=== PATIENT | female | born 2005 | race Caucasian/White ===

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

== ENCOUNTER 2025-04-15 00:55 | Inpatient (IN) ==
[2025-04-15] MEDS ORDERED: LIDOCAINE 1% LOCAL 20 ML VIAL INFIL PRN (01:20)
[2025-04-15] MEDS ORDERED: CALCIUM CARBONATE 500 MG CHEWABLE TAB PO PRN (01:20)
[2025-04-15] MEDS ORDERED: OXYTOCIN 30 UNITS/NSS 30 UNITS/500 ML BAG IV PRN ×2 (01:20→14:19)
--- NOTE | 2025-04-15 01:25 | History & Physical Report ---
Date of Service April 15, 2025 Assessment & Plan (1) SROM (spontaneous rupture of membranes): Present on Admission?: Yes (2) Normal labor: Present on Admission?: Yes Plan Patient is a 19yo who presents at 40w0d with SROM/labor. Cvx 3-4cm, grossly ruptured - meconium stained fluid noted; will augment with pitocin if needed Epidural PRN GBS neg, Rh pos, RI Anticipate History of Present Illness Chief Complaint: Leaking of fluid, contractions Primary Care Provider: Elizabeth Parker PA-C Patient is a 19yo who presents at 40w0d with leaking of fluid and contractions. Notes contractions rated at 7, happening every few minutes. Noticed rupture of membranes around midnight - notes light yellow color. complicated by daily vaping. Allergies Allergy/AdvReac Type Severity Reaction Status Date / Time amoxicillin Allergy Severe HIVES Verified 04/15/25 01:23 diphenhydramine Allergy Severe BAD HIVES Verified 04/15/25 01:23 Penicillins Allergy Severe HIVES Verified 04/15/25 01:23 Home Medications Medication Instructions Recorded Confirmed Type PNV no.[id number] PO 09/21/24 04/09/25 History [ Gummies] Patient History Medical History (Updated 04/15/25 @ 01:24 by Mary Ellen Tipton MD) Varicella vaccination Mood disorder Anxiety Family History Grandmother (Maternal) Breast cancer Denies family history of Ovarian cancer Colorectal cancer Social History Smoking Status: Current every day smoker Tobacco Type: E-cigarettes / Vaping Do You Dip or Chew Tobacco: No; Hx Alcohol Use: No Hx Substance Use: No Preferred Language: Amharic marital status: Single marital status details: alberto Perkins (21) not involved Current Living Situation: Parent Current Living Situation Comment: lives with parent, dog, cat-parents changing litter current occupational status: unemployed Feels Safe at Home: Yes Review of Systems All systems reviewed & are unremarkable except as noted in HPI & below Physical Exam Constitutional: WD/WN, vitals as above Respiratory: normal respiratory effort Psychiatric: Orientation: alert and oriented x 3 Genitourinary: Manual OB Exam: + cervical dilation (3-4 per RN check), + cervical effacement 70% (75%) and + station -2 OB Exam Monitor Tracing: + external FHT monitor used, + external uterine monitor used (contractions q 2-3 min) and + category I (130s/mod dimitri/+accels/no decels) grossly ruptured with meconium stained fluid Results & Data Vital Signs (Past 12 Hours) Vital Signs Pulse BP 04/15/25 01:17 118 H 132/89 04/15/25 01:10 123 H 141/94 H Coding Level of Care Code None Diagnoses SROM (spontaneous rupture of membranes) Normal labor O80; Z37.9
[2025-04-15] MEDS: LACTATED RINGER'S 1,000 ML IV PRN (01:26)
[2025-04-15] MEDS ORDERED: INFLUENZA VACC TS2025-26(6m+)/PF (IIV3) 0.5mL Syr IM ONE (01:39)
[2025-04-15 01:40] LABS: Hematocrit (blood only) 31.6 % (37.0-47.0); Hemoglobin 10.1 g/dL (12.0-16.0); Mean Corpuscular Hemoglobin 24.6 pg (25.0-34.0); Mean Corpuscular Volume 76.9 fL (80.0-100.0); Platelet Count 192 K/uL (130-400); RDW Standard Deviation 38.0 fL (36.4-46.3); Red Blood Count 4.11 M/uL (4.20-5.40); White Blood Count 11.18 K/ul (4.8-10.8)
[2025-04-15] MEDS ORDERED: BUPIVACAINE 0.25% PF 30 ML VIAL EPI STA (02:13)
[2025-04-15] MEDS ORDERED: SODIUM CHLORIDE 0.9% PF INJ 10 ML VIAL EPI STA (02:13)
[2025-04-15] MEDS ORDERED: NALOXONE HCL 0.4 MG/1 ML VIAL/CARP IV PRN (02:13)
[2025-04-15] MEDS ORDERED: ONDANSETRON INJ 2 MG/ML 2 ML VIAL IV PRN (02:13)
[2025-04-15] MEDS ORDERED: LIDOCAINE 2%/EPINEPHRINE 1:200,000 20 ML PF EPI STA (02:13)
[2025-04-15] MEDS ORDERED: LIDOCAINE 2% MPF LOCAL 5 ML VIAL EPI PRN (02:13)
[2025-04-15] MEDS ORDERED: NALBUPHINE HCL INJ 10 MG/ML AMP IV PRN (02:13)
[2025-04-15] MEDS ORDERED: ROPIVACAINE 0.5% PF 5 MG/ML 20 ML VIAL EPI PRN (02:13)
[2025-04-15] MEDS ORDERED: NALOXONE HCL 1 MG in SODIUM CHLORIDE 0.9% 1,000 ML IV PRN (02:13)
[2025-04-15] MEDS ORDERED: SODIUM CHLORIDE 0.9% PF INJ 10 ML VIAL EPI PRN (02:13)
--- NOTE | 2025-04-15 02:13 | Anesthesiology Consultation ---
Date of Service April 15, 2025 Assessment & Plan ASA ASA2 Proposed Anesthesia Anesthesia Type: Labor Epidural Risk / Benefits Reviewed With: PT / POA / Parent / Guardian, Accepts Plan and Informed Consent Obtained History Height/Weight Height: 5 ft 4 in Weight: 65.771 kg Allergies Allergy/AdvReac Type Severity Reaction Status Date / Time amoxicillin Allergy Severe HIVES Verified 04/15/25 01:23 diphenhydramine Allergy Severe BAD HIVES Verified 04/15/25 01:23 Penicillins Allergy Severe HIVES Verified 04/15/25 01:23 Medications Home Medications Medication Instructions Recorded Confirmed Last Taken PNV no.[id number] PO 09/21/24 04/09/25 04/14/25 09:00 [ Gummies] Active Medications Generic Name Dose Route Start Last Admin Trade Name Freq PRN Reason Stop Dose Admin Lactated Ringer's 1,000 mls @ 125 mls/hr 04/15/25 01:20 04/15/25 02:27 Lr IV 04/17/25 01:19 125 mls/hr .Q8H PRN Administration L&D Protocol Protocol Past Medical History Medical History Varicella vaccination Mood disorder Anxiety Exercise / Class Metabolic Activity II 4-5 Yardwork/Stairs/Walk up hill Past Family History Family History Grandmother (Maternal) Breast cancer Denies family history of Ovarian cancer Colorectal cancer Past Anesthesia History No Hx of Anesthesia Complications and No Family Hx of Anesthesia Complications History of PONV No Hx of PONV and No Hx of Motion Sickness Social History Smoking Status: Current every day smoker Do You Dip or Chew Tobacco: No Hx Alcohol Use: No Hx Substance Use: No substance use type: does not use Review of Systems denies fever/cough/ colds/ chest pain/ SOB/ SHARON denies SHARON Physical Exam Vital Signs Last Vital Signs Temp 36.4 C L 04/15/25 01:25 Pulse 107 H 04/15/25 03:03 Resp 18 04/15/25 01:25 BP 129/81 04/15/25 03:03 Pulse Ox 100 04/15/25 03:02 ENMT Mouth: no TMJ abnormality and no dentition abnormality Thyromental Distance: > or= 3.5 Finger Breadths Mallampati Class: II Neck neck extension not limited Respiratory normal respiratory effort; no respiratory distress Auscultation: lungs clear to auscultation bilaterally Cardiovascular Rate/Rhythm: regular rate and regular rhythm Neurologic moves all extremities Psychiatric Orientation: alert and oriented x 3 Testing Laboratory Results 04/15/25 01:27
[2025-04-15] MEDS: BUPIVACAINE 0.25% PF 30 ML VIAL ONE (02:59)
[2025-04-15] MEDS: LIDOCAINE 2%/EPINEPHRINE 1:200,000 20 ML PF ONE ×2 (03:00→10:55)
[2025-04-15] MEDS: fentANYL 2 MCG/ML BUPIVacaine 0.125%-NSS 100ML BAG ONE (03:02)
--- NOTE | 2025-04-15 06:20 | Labor Progress Brief Note ---
Date of Service April 15, 2025 Subjective Reason For Note: Routine Evaluation Patient doing well, comfortable with epidural. Review of Systems All systems reviewed & are unremarkable except as noted in HPI & below Assessment & Plan (1) Normal labor: (2) SROM (spontaneous rupture of membranes): Plan Pt is a 19yo admitted for SROM/labor Doing well, continuing to make cervical change on her own S/P epidural Anticipate Admission and Anticipated Discharge Date Admission Date: April 15, 2025 Physical Exam Constitutional: WD/WN, vitals as above Respiratory: normal respiratory effort Psychiatric: Orientation: alert and oriented x 3 Genitourinary: normal external appearance Manual OB Exam: + cervical dilation 5 cm, + cervical effacement 100%, + station -1 and + amniotic fluid meconium AROM for forebag performed in normal sterile fashion with head well applied to cervix, return of light meconium stained fluid. Pt tolerated well. Results & Data Vital Signs (Past 12 Hours) Vital Signs Temp Pulse Resp BP Pulse Ox 04/15/25 06:12 100 04/15/25 06:12 103 H 04/15/25 06:08 104 H 04/15/25 06:08 149/66 H 04/15/25 06:07 99 04/15/25 06:07 106 H 04/15/25 06:02 100 04/15/25 06:02 93 H 04/15/25 05:57 99 04/15/25 05:57 93 H 04/15/25 05:53 97 H 04/15/25 05:53 131/75 04/15/25 05:52 99 04/15/25 05:52 114 H 04/15/25 05:47 99 04/15/25 05:47 104 H 04/15/25 05:42 99 04/15/25 05:42 97 H 04/15/25 05:39 131 H 04/15/25 05:39 133/87 04/15/25 05:37 99 04/15/25 05:37 108 H 04/15/25 05:32 99 04/15/25 05:32 117 H 04/15/25 05:30 16 04/15/25 05:30 36.9 C 16 04/15/25 05:27 97 04/15/25 05:27 97 H 04/15/25 05:23 92 H 04/15/25 05:23 124/63 04/15/25 05:22 97 04/15/25 05:22 106 H 04/15/25 05:17 98 04/15/25 05:17 93 H 04/15/25 05:12 99 04/15/25 05:12 102 H 04/15/25 05:08 102 H 04/15/25 05:08 122/62 04/15/25 05:07 98 04/15/25 05:07 99 H 04/15/25 05:02 99 04/15/25 05:02 96 H 04/15/25 04:57 99 04/15/25 04:57 101 H 04/15/25 04:53 99 H 04/15/25 04:53 120/64 04/15/25 04:52 98 04/15/25 04:52 98 H 04/15/25 04:47 99 04/15/25 04:47 91 H 04/15/25 04:42 98 04/15/25 04:42 105 H 04/15/25 04:39 106 H 04/15/25 04:39 121/71 04/15/25 04:37 99 04/15/25 04:37 101 H 04/15/25 04:32 99 04/15/25 04:32 109 H 04/15/25 04:27 99 04/15/25 04:27 126 H 04/15/25 04:23 100 H 04/15/25 04:23 127/87 04/15/25 04:22 98 04/15/25 04:22 106 H 04/15/25 04:17 100 04/15/25 04:17 109 H 04/15/25 04:12 100 04/15/25 04:12 102 H 04/15/25 04:08 116 H 04/15/25 04:08 128/77 04/15/25 04:07 100 04/15/25 04:07 101 H 04/15/25 04:02 100 04/15/25 04:02 109 H 04/15/25 03:57 100 04/15/25 03:57 107 H 04/15/25 03:54 117 H 04/15/25 03:54 128/73 04/15/25 03:52 100 04/15/25 03:52 121 H 04/15/25 03:47 100 04/15/25 03:47 115 H 04/15/25 03:42 99 04/15/25 03:42 115 H 04/15/25 03:40 193 H 04/15/25 03:40 153/70 H 04/15/25 03:37 100 04/15/25 03:37 110 H 04/15/25 03:32 99 04/15/25 03:32 99 H 04/15/25 03:27 98 04/15/25 03:27 103 H 04/15/25 03:22 99 04/15/25 03:22 111 H 04/15/25 03:22 106 H 04/15/25 03:22 136/85 04/15/25 03:18 107 H 04/15/25 03:18 135/77 04/15/25 03:17 99 04/15/25 03:17 107 H 04/15/25 03:12 100 04/15/25 03:12 120 H 04/15/25 03:12 136/89 04/15/25 03:07 99 04/15/25 03:07 105 H 04/15/25 03:07 108 H 04/15/25 03:07 135/82 04/15/25 03:05 115 H 04/15/25 03:05 133/82 04/15/25 03:05 16 04/15/25 03:05 36.7 C 16 04/15/25 03:03 107 H 04/15/25 03:03 129/81 04/15/25 03:02 100 04/15/25 03:02 110 H 04/15/25 03:01 113 H 04/15/25 03:01 127/79 04/15/25 02:59 114 H 04/15/25 02:59 134/81 04/15/25 02:57 99 04/15/25 02:57 102 H 04/15/25 02:57 136/77 04/15/25 02:55 116 H 04/15/25 02:55 136/83 04/15/25 02:52 100 04/15/25 02:52 128 H 04/15/25 02:47 100 04/15/25 02:47 135 H 04/15/25 01:25 36.4 C L 118 H 18 132/89 04/15/25 01:17 36.4 C L 118 H 18 132/89 04/15/25 01:10 123 H 141/94 H Coding Level of Care Code None Diagnoses Normal labor O80; Z37.9 SROM (spontaneous rupture of membranes)
[2025-04-15] MEDS: SODIUM CHLORIDE 0.9% PF INJ 10 ML VIAL ONE (06:28)
[2025-04-15] MEDS: fentANYL 2 MCG/ML BUPIVacaine 0.125%-NSS 100ML BAG EPI PRN (08:42)
[2025-04-15] MEDS ORDERED: NURSING L&D Epidural Breakthrough Pain Update ONE (09:22)
[2025-04-15] MEDS: BUPIVACAINE 0.25% PF 30 ML VIAL EPI PRN (10:55)
--- NOTE | 2025-04-15 11:31 | Communication Note ---
Date of Service: April 15, 2025 Was alerted by nursing that patient in increased pain and requested re-dose. Patient reports bilateral abdominal pain with contractions worsening. On inspection of catheter, dressing intact, however epidural withdrawn to 4-5 cm. Per charting loss occured around 3-4 cm. Due to uncertainty of epidural location, discussed with patient options including attempting re-dose with low certainty of adequate response, replacing epidural, or proceeding without anesthesia. Decision to replace epidural. Epidural removed with tip intact, area prepped and draped. Timeout performed. Skin localized with 1% lidocaine 3ml. Thouy needle (17G) inserted and loss obtained at 6 cm, spinal dose of 0.25% bupiv (0.25ml) given. Catheter thread to 12 cm, 3cc of test dose negative. After securing epidural, dosed with 100 mcg fentanyl through epidural. Patient reported improved pain.
--- NOTE | 2025-04-15 13:52 | Delivery Summary ---
Vaginal Delivery Summary Date of Service April 15, 2025 Vaginal Delivery Summary VAVD and 2nd Degree LAC Patient arrived in with rupture membranes and progress with labor epidural with previous on-call DrMarika + Notes she was 5 cm she then progressed to 10 cm initially tried to push and then took a break and then was redosed on her epidural and then was able to push for 2 more hours at this stage she was dealing with exhaustion baby was being pushed down to +2 to +3 station on maternal efforts I offered the vacuum discussed risks and benefits and discussed how it would help expedient delivery as she was getting more exhausted she agreed bladder was drained first with a red rubber Zabala for 300 mL Kiwi vacuum placed on the baby's head and over 2 contractions we delivered a baby no excessive force was used a small midline episiotomy was made to facilitate delivery once baby's head was born vacuum is detached gentle traction of the baby resulted in easy delivery live vigorous female Cord clamped and cut cord gases sent placenta removed with traction IV Pitocin started uterine tone excellent the small episiotomy and tear was repaired with 3-0 Vicryl sponge and instrument counts were correct QBL 250 mL [facility] Vaginal Delivery Charge Delivery Type Details: VAVD and 2nd Degree LAC
[2025-04-15] MEDS ORDERED: HYDROCORTISONE ACETATE 25 MG SUPP PR PRN (14:19)
[2025-04-15] MEDS ORDERED: ACETAMINOPHEN 325 MG TAB PO PRN (14:19)
[2025-04-15 14:22] LABS: Base Excess Cord Arterial Bld -5.2 mEq/L (-9-1.8); Base Excess Cord Venous Blood -6.3 mEq/L (-7.7-1.9); CO2 Cord Arterial Blood 40 mmHg (39.1-73.5); Cord Venous Blood PO2 30 mmHg (14.1-43.3); HCO3 Cord Arterial Blood 21 mmol/L (19.7-28.5); O2 Saturation Cord Venous Bld 65.1 % (<68); Oxygen Sat Cord Arterial Blood < 60.0 % (<60); PO2 Cord Arterial Blood 23 mmHg (4.1-31.7); pH Cord Arterial Blood 7.32 (7.1-7.38)
--- NOTE | 2025-04-15 15:08 | Anesthesia Procedure Note ---
Date of Service April 15, 2025 Anesthesia Post Epidural Note Vital Signs Vital Signs: Temp Pulse Resp BP Pulse Ox 98.2 F 123 H 18 113/57 L 98 04/15/25 13:45 04/15/25 15:04 04/15/25 13:45 04/15/25 15:04 04/15/25 13:37 Pain Intensity Bilateral Abdomen: Pain Intensity: 3 Back: Pain Intensity: 10 Notes Mental Status: alert / awake / arousable and participated in evaluation Nausea / Vomiting: adequately controlled Pain: adequately controlled Airway Patency, RR, SpO2: stable & adequate BP & HR: stable & adequate Hydration State: stable & adequate Neuraxial Anesthesia: was administered and sensory block is resolving Anesthetic Complications: no major complications apparent and Pt Satisfied with anesthetic care Epidural: Removed without complications and With tip intact
[2025-04-15] MEDS: IBUPROFEN 600 MG TAB PO PRN (16:16)
[2025-04-15] MEDS: BENZOCAINE 20% SPRY 85 APPLN/85 GM CAN EXT PRN (18:02)
[2025-04-15] MEDS: DOCUSATE SODIUM 100 MG CAP PO SCH (20:29)
[2025-04-16 06:17] LABS: Hematocrit (blood only) 23.1 % (37.0-47.0); Hemoglobin 7.2 g/dL (12.0-16.0); Mean Corpuscular Hemoglobin 24.2 pg (25.0-34.0); Mean Corpuscular Volume 77.5 fL (80.0-100.0); Platelet Count 151 K/uL (130-400); RDW Standard Deviation 38.9 fL (36.4-46.3); Red Blood Count 2.98 M/uL (4.20-5.40); White Blood Count 12.69 K/ul (4.8-10.8)
--- NOTE | 2025-04-16 07:10 | Obstetrical Progress Note ---
Date of Service April 16, 2025 Assessment & Plan (1) care and examination: Plan: 19yo [id number] day 1 s/p VAVD Fells well today Continue post- care Encourage ambulation and bottle feeding Pain controlled with Ibuprofen Vital Signs and Hgb stable Anticipate d/c tomorrow Admission and Anticipated Discharge Date Admission Date: April 15, 2025 Subjective 19yo [id number] day 1 s/p VAVD Ambulation: Ambulating normally Voiding: No voiding problems Passing Gas:: Yes Diet Tolerance:: regular diet Lochia:: Small Feeding Type:: bottle feeding Current Pain Level: /10 controlled with Ibuprofen Resting comfortably this AM in NAD. Denies PALMER, CP, SOB, N/V/D, LE pain/swelling. Physical Exam Physical Exam: General: patient resting comfortably, NAD, non-toxic in appearance, answers ques tions appropriately Skin: warm, dry, intact Heart: S1/S2 heard, regular, no m/r/g Lungs: equal air entry bilaterally, no rales/rhonchi/wheezes Abd: Normoactive BS, soft, NT/ND, uterine fundus firm below umbilicus Ext: warm, no clubbing/cyanosis or edema Neuro: nonfocal, patient AAOx4, speech intact, no facial droop, moving all extremities on command Results & Data Vital Signs (Past 12 Hours) Vital Signs Temp Pulse Pulse Resp BP Pulse Ox O2 Del Method 04/16/25 03:25 36.6 C 89 18 119/77 100 Room Air 04/15/25 23:20 37.4 C 96 H 18 104/61 98 Room Air 04/15/25 20:15 36.9 C 112 H 18 118/69 99 Room Air Resident Activity Tracking Resident Involvement: Resident Care Provided Care Provided: OB Delivery
[2025-04-16] MEDS: DIPHTHER/TETAN/PERTUS Vaccine (Tdap, Adol/Adult) 0.5mL IM ONE (07:11)
[2025-04-16] MEDS: PRENATAL VITAMIN 1 TAB PO SCH (07:33)
--- NOTE | 2025-04-17 06:43 | Obstetrical Progress Note ---
Date of Service April 17, 2025 Assessment & Plan (1) care and examination: Plan: 19yo [id number] day 2 s/p VAVD Fells well today Continue post- care Encourage ambulation and bottle feeding Pain controlled with Ibuprofen Vital Signs stable and Hgb pending Anticipate discharge home today. Follow up with OB provider in 6 weeks. Admission and Anticipated Discharge Date Admission Date: April 15, 2025 Supervising Physician Co-Signing Physician Notes Resident Physician Supervision Note: I interviewed and examined the patient. Discussed with Dr. Jameson and agree with findings and plan as documented in the note. Any exceptions or clarifications are listed here: PPD#2 doing well. Feeling well, ambulating well. Discussed Hgb drop, she is feeling well and denies weakness/dizziness, declines blood transfusion, will start iron. Rx sent Documented By: Hawa Harmon, DO Subjective 19yo [id number] day 2 s/p VAVD Ambulation: Ambulating normally Voiding: No voiding problems Passing Gas:: Yes Diet Tolerance:: regular diet Lochia:: Small Feeding Type:: bottle feeding Current Pain Level: 2/10 controlled with Ibuprofen Resting comfortably this AM in NAD. Denies PALMER, CP, SOB, N/V/D, LE pain/swelling. Physical Exam Physical Exam: General: patient resting comfortably, NAD, non-toxic in appearance, answers questions appropriately Skin: warm, dry, intact Heart: S1/S2 heard, regular, no m/r/g Lungs: equal air entry bilaterally, no rales/rhonchi/wheezes Abd: soft, NT/ND, uterine fundus firm 1cm below umbilicus Ext: warm, no clubbing/cyanosis or edema Neuro: nonfocal, patient AAOx4, speech intact, no facial droop, moving all extremities on command Results & Data Vital Signs (Past 12 Hours) Vital Signs Temp Pulse Pulse Resp BP Pulse Ox O2 Del Method 04/16/25 23:45 36.9 C 99 H 18 127/83 99 Room Air 04/16/25 19:40 36.7 C 96 H 18 124/72 98 Room Air Resident Activity Tracking Resident Involvement: Resident Care Provided Care Provided: OB Delivery
[2025-04-17 07:05] LABS: Hematocrit (blood only) 21.9 % (37.0-47.0); Hemoglobin 6.9 g/dL (12.0-16.0)
[2025-04-17 08:33] VITALS: BP 107/69; PULSE 91; RESP 16; TEMP 98.2; O2SAT 98
== END 2025-04-17 11:30 | disposition home or self-care (01) | DRG 807 ==
LOC: OPB 00:55 → 4S1 00:58 → 4E2 17:40